=== PATIENT | female | born 1975 | race Caucasian/White ===

== ENCOUNTER 2017-01-28 09:17 | Emergency (ER) | payer MEDICAID ==
[~2017-01-28] VITALS: Ht 160 cm; Wt 86.7 kg
[2017-01-28] MEDS ORDERED: LEVO25TA4 PO (09:48)
[2017-01-28] MEDS ORDERED: DULO30CA2 PO (09:48)
[2017-01-28] MEDS ORDERED: CETI-158 PO (09:48)
[2017-01-28] MEDS ORDERED: FOLI20CA PO (09:48)
[2017-01-28] MEDS ORDERED: GABA300C10 PO (09:48)
[2017-01-28] MEDS ORDERED: HYDR200T PO (09:48)
[2017-01-28] MEDS ORDERED: METO25TA91 PO (09:48)
[2017-01-28] MEDS ORDERED: RIZA10TA5 PO (09:48)
[2017-01-28] MEDS ORDERED: ASPIRIN 81 MG TABLET CHEW ONE (09:57)
[2017-01-28] MEDS ORDERED: SODIUM CHLORIDE FLUSH 10ML SYR IVF ONE (10:00)
[2017-01-28] MEDS ORDERED: SODIUM CHLORIDE 0.9% 1,000ML IVBOLUS ONE (10:00)
[2017-01-28] MEDS ORDERED: ASPIRIN 81 MG TABLET CHEW PO ONE (10:00)
[2017-01-28 10:25] LABS: BLOOD UREA NITROGEN 8 mg/dL (7-18)
[2017-01-28 11:08] LABS: IS PT STATUS REG ER OR PRE ER? YES
[2017-01-28 11:32] VITALS: BP 152/85
== END 2017-01-28 11:34 | disposition home or self-care (01) ==
LOC: ED 10:36
DX: R07.89 Other chest pain (principal); M94.0 Chondrocostal junction syndrome [Tietze]
CPT/HCPCS: 36415; 71020; 80048; 82040; 84484; 85025; 93005; 96360; 99285; J7030

== ENCOUNTER → 2017-05-04 | Outpatient (CLI) | payer MEDICAID ==
[~2017-05-04] MED LIST: CETI-158 PO; DULO30CA2 PO; FOLI20CA PO; GABA300C10 PO; HYDR200T PO; LEVO25TA4 PO; METO25TA91 PO; RIZA10TA5 PO
== END | disposition home or self-care (01) ==
LOC: CFH 10:23 → EDSTATUS 11:00
PROVIDERS: ATTEND Nurse Practitioner
DX: E04.2 Nontoxic multinodular goiter (principal)
CPT/HCPCS: 76536

== ENCOUNTER → 2018-01-01 | Outpatient (CLI) | payer MEDICAID ==
[~2018-01-01] MED LIST changes: -HYDR200T PO; +HYDR200T72 PO
== END ==
LOC: CFH 08:18
PROVIDERS: ATTEND Nurse Practitioner
DX: Z12.31 Encounter for screening mammogram for malignant neoplasm of breast (principal)
CPT/HCPCS: 77067